=== PATIENT | female | born 1960 | race Caucasian/White ===

== ENCOUNTER 2017-01-06 11:57 | Emergency (ER) | payer MEDICARE, BC ==
[2017-01-06] MEDS ORDERED: METHYLPREDNISOLONE INJ 125 MG/2 ML SDV IV ONE (12:14)
--- NOTE | 2017-01-06 12:19 | ER Document Report ---
ED General - General Chief Complaint: Shortness Of Breath Stated Complaint: DIFFICULTY BREATHING Time seen by provider: 12:15 Mode of Arrival: Medic Information source: Patient, Relative Notes: 56-year-old female with history of multiple sclerosis who reports for the past 2 days having sensation of difficulty swallowing and feeling as if her throat is closing up. She denies prior history of symptoms like this. She reports recently completed a course of prednisone for her MS. She reports she is followed by Dr. Hairston in [place] for her multiple sclerosis and was recently started on Rituxan but she doesn't believe that's helping. She denies fever, chills, nausea, vomiting, earache, chest pain, abdominal pain, or back pain. Physical Exam: General: Alert, appears well. HEENT: Normocephalic. Atraumatic. PERRLA. Extraocular movements intact. Oropharynx clear. Patient has a soft voice but there is no stridor or hoarseness or drooling she is swallowing secretions Neck: Supple. Non-tender. No adenopathy no JVD Respiratory: No respiratory distress. Clear and equal breath sounds bilaterally. Cardiovascular: Regular rate and rhythm. Abdominal: Normal Inspection. Soft, non-tender. No guarding rebound rigidity No distension. Normal Bowel Sounds. Back: Non-tender. No deformity or step off. Extremities: Moves all four extremities. Punctures warm to plus pulses of cyanosis no edema no Homans sign bilaterally Neurological: Speech clear mentation normal patient care representative strength 4-5 and equal both upper extremities motor function 4-5 and equal in both lower extremities Psychological: Normal affect. Normal Mood. Skin: Warm. Dry. Normal color. TRAVEL OUTSIDE OF THE [place] IN LAST 30 DAYS: No - Related Data Allergies/Adverse Reactions: acetaminophen [From Vicodin] Allergy (Verified 03/15/12 19:12) Hallucinations glatiramer acetate [From Copaxone] Allergy (Verified 10/19/12 21:45) hydrocodone bitartrate [From Vicodin] Allergy (Verified 03/15/12 19:12) Hallucinations interferon beta-1b [From Betaseron] Allergy (Verified 10/19/12 21:45) Past Medical History - Social History Smoking Status: Current Every Day Smoker Family History: CAD, Hyperlipidemia, Hypertension, Other - Throat cancer - Past Medical History Cardiac Medical History: Reports: Hx Hypercholesterolemia Pulmonary Medical History: Denies: Hx Tuberculosis Renal/ Medical History: Reports: Hx Ovarian Cysts Musculoskeltal Medical History: Reports Hx Multiple Sclerosis Psychiatric Medical History: Reports: Hx Depression - anxiety Past Surgical History: Reports: Hx Cholecystectomy, Hx Tonsillectomy. Denies: Hx Pacemaker - Immunizations Hx Diphtheria, Pertussis, Tetanus Vaccination: No Review of Systems - Review of Systems Constitutional: denies: Chills, Fever EENT: denies: Ear pain Cardiovascular: denies: Chest pain Respiratory: denies: Cough Gastrointestinal: denies: Abdominal pain, Diarrhea Genitourinary: denies: Burning Female Genitourinary: denies: Musculoskeletal: denies: Back pain Hematologic/Lymphatic: denies: Swollen glands Neurological/Psychological: denies: Speech impairment Physical Exam - Vital signs Vitals: Temp Pulse Resp BP Pulse Ox 97.8 F 65 14 120/65 96 01/06/17 12:17 01/06/17 12:17 01/06/17 12:17 01/06/17 12:17 01/06/17 12:17 Course - Re-evaluation Re-evalutation: 01/06/17 16:07 01/06/17 16:07 Patient reports feeling somewhat better with Solu-Medrol 125 mg IV here. She has been drinking liquids without difficulty here. She has no stridor horses drooling or evidence for airway compromise. The case with Dr. Jamey Hairston her neurologist in [facility]. He and I agreed that her symptoms are likely an exacerbation of her multiple sclerosis. He requests that she receive a total of 1 g of Solu-Medrol IV and then be placed on a prednisone taper of 100 mg a day for 2 days tapering down to 10 mg for 2 days over 10 day course. Patient reports she has appointment with him next week she was encouraged to keep that appointment for follow-up - Vital Signs Vital signs: Temp Pulse Resp BP Pulse Ox 97.8 F 65 14 120/65 96 01/06/17 12:17 01/06/17 12:17 01/06/17 12:17 01/06/17 12:17 01/06/17 12:17 - Laboratory Result Diagrams: 01/06/17 12:45 01/06/17 12:45 Laboratory results interpreted by me: 01/06/17 01/06/17 12:45 12:45 RDW 14.4 H ALT 64 H - Diagnostic Test Radiology reviewed: Image reviewed, Reports reviewed - EKG Interpretation by Me Additional EKG results interpreted by me: 01/06/17 16:06 EKG reviewed by myself shows sinus rhythm at 68 with no acute changes Discharge - Discharge Clinical Impression: Multiple sclerosis Dyspnea Qualifiers: Dyspnea type: unspecified Qualified Code(s): R06.00 - Dyspnea, unspecified Condition: Stable Disposition: HOME, SELF-CARE Additional Instructions: Take prednisone tapering dose as prescribed. Keep your appointment with Dr. Hairston next week. See your doctor or return to emergency department for further problems Prescriptions: Prednisone [Deltasone 20 mg Tablet] See Protocol PO DAILY 10 Days Referrals: MEHREEN PEREZ MD [Primary Care Provider] - Follow up as needed
[2017-01-06 13:00] LABS: ABSOLUTE BASOPHILS # (AUTO) 0.1 10^3/uL (0.0-0.2); ABSOLUTE EOSINOPHILS # (AUTO) 0.1 10^3/uL (0.0-0.6); ABSOLUTE LYMPHOCYTES (AUTO) 1.6 10^3/uL (0.5-4.7); ABSOLUTE MONOCYTES (AUTO) 0.7 10^3/uL (0.1-1.4); ABSOLUTE NEUT (AUTO) 7.9 10^3/uL (1.7-8.2); BASOPHILS % (AUTO) 0.6 % (0-2); HEMATOCRIT 41.3 % (36.0-47.0); HEMOGLOBIN 13.8 g/dL (12.0-15.5); HGB HCT DIFFERENCE 0.1; LYMPHOCYTES % (AUTO) 15.6 % (13-45); MEAN CORPUSCULAR HEMOGLOBIN 32.4 pg (27.0-33.4); MEAN CORPUSCULAR HGB CONC 33.4 g/dL (32.0-36.0); MEAN CORPUSCULAR VOLUME 97 fl (80-97); MONOCYTES % (AUTO) 6.3 % (3-13); RED BLOOD COUNT 4.26 10^6/uL (3.72-5.28); RED CELL DISTRIBUTION WIDTH 14.4 % (11.5-14.0); SEGMENTED NEUTROPHILS % (AUTO) 76.5 % (42-78); WHITE BLOOD COUNT 10.3 10^3/uL (4.0-10.5)
[2017-01-06 13:28] LABS: ALANINE AMINOTRANSFERASE 64 U/L (9-52); ALBUMIN 4.2 g/dL (3.5-5.0); ALKALINE PHOSPHATASE 87 U/L (38-126); ANION GAP 8 (5-19); ASPARTATE AMINO TRANSFERASE 21 U/L (14-36); BILIRUBIN,TOTAL 0.5 mg/dL (0.2-1.3); BLOOD UREA NITROGEN 10 mg/dL (7-20); CALCIUM 9.5 mg/dL (8.4-10.2); CARBON DIOXIDE 26 mmol/L (22-30); CHLORIDE 106 mmol/L (98-107); GLUCOSE 98 mg/dL (75-110); POTASSIUM 3.9 mmol/L (3.6-5.0); SODIUM 140.1 mmol/L (137-145); TOTAL PROTEIN 6.5 g/dL (6.3-8.2)
[2017-01-06] MEDS ORDERED: METHYLPREDNISOLONE INJ 40 MG/1 ML SDV IV ONE (15:17)
[2017-01-06] MEDS ORDERED: METHYLPREDNISOLONE INJ 1000 MG VIAL IV ONE (16:30)
[2017-01-06 17:33] VITALS: BP 125/96
--- NOTE | 2017-01-06 23:51 | EKG REPORT ---
SEVERITY:- NORMAL ECG - SINUS RHYTHM : Confirmed by: Dennis Nelson 06-Jan-2017 23:50:26
== END 2017-01-06 17:33 | disposition home or self-care (01) ==
LOC: ER 11:57
DX: G35 Multiple sclerosis (principal); R06.00 Dyspnea, unspecified; F17.200 Nicotine dependence, unspecified, uncomplicated; Z90.49 Acquired absence of other specified parts of digestive tract; Z88.6 Allergy status to analgesic agent
CPT/HCPCS: 93005; 96376; 99285; 96374; 36415; 85025; 80053; 71010; 70491; 93010; J2930 ×2

== ENCOUNTER 2017-10-14 11:01 | Emergency (ER) | payer BC, MEDICARE ==
--- NOTE | 2017-10-14 11:04 | ER Document Report ---
ED General - General Stated Complaint: POSSIBLE STROKE Time Seen by Provider: 10/14/17 11:03 Notes: 57-year-old female patient to the emergency department via EMS for strokelike symptoms. Reportedly started at 1030 this morning. Had a collapse at home. Questionable seizure-like activity. History of seizures. Complaining of a headache prior to this strokelike symptom. EMS was uncertain whether this is a stroke so-called stroke alert just to be safe. Patient is responsive. Opening eyes. Squeezing fingers. Wants to keep her eyes closed due to the headache. No vomiting. No other symptoms at this time. She taken directly to CT scan. TRAVEL OUTSIDE OF THE [place] IN LAST 30 DAYS: No - HPI Onset: Just prior to arrival Onset/Duration: Sudden Quality of pain: Throbbing Severity: Moderate Pain Level: 0 Associated symptoms: Headache - Related Data Allergies/Adverse Reactions: acetaminophen [From Vicodin] Allergy (Verified 03/15/12 19:12) Hallucinations glatiramer acetate [From Copaxone] Allergy (Verified 10/19/12 21:45) hydrocodone bitartrate [From Vicodin] Allergy (Verified 03/15/12 19:12) Hallucinations interferon beta-1b [From Betaseron] Allergy (Verified 10/19/12 21:45) Past Medical History - General Information source: Patient, [facility] Records - Social History Smoking Status: Former Smoker Cigarette use (# per day): No Frequency of alcohol use: None Drug Abuse: None Lives with: Family, Spouse/Significant other Family History: CAD, Hyperlipidemia, Hypertension, Other - Throat cancer - Past Medical History Cardiac Medical History: Reports: Hx Hypercholesterolemia Pulmonary Medical History: Denies: Hx Tuberculosis Renal/ Medical History: Reports: Hx Ovarian Cysts Musculoskeltal Medical History: Reports Hx Multiple Sclerosis Psychiatric Medical History: Reports: Hx Depression - anxiety Past Surgical History: Reports: Hx Cholecystectomy, Hx Tonsillectomy. Denies: Hx Pacemaker - Immunizations Hx Diphtheria, Pertussis, Tetanus Vaccination: No Review of Systems - Review of Systems Constitutional: Weakness EENT: Blurred vision, Other - Right-sided facial weakness Cardiovascular: No symptoms reported Respiratory: No symptoms reported Gastrointestinal: No symptoms reported Genitourinary: No symptoms reported Female Genitourinary: No symptoms reported Musculoskeletal: Muscle pain, Other - Muscle weakness bilateral lower extremities Skin: No symptoms reported Hematologic/Lymphatic: No symptoms reported Neurological/Psychological: Gait changes, Seizure, Headaches Physical Exam - Vital signs Vitals: Resp 17 10/14/17 11:18 Interpretation: Normal - General General appearance: Alert, Other - She appears uncomfortable. Wants to keep her eyes closed due to the headache. - HEENT Head: Normocephalic, Atraumatic Eyes: Normal Pupils: PERRL Fundascopic: Other - Very difficult to get patient to cooperate with exam due to the photophobia Mucous membranes: Normal Neck: Normal. No: Brudzinski, Lymphadenopathy, Meningismus - Respiratory Respiratory status: No respiratory distress Chest status: Nontender Breath sounds: Normal Chest palpation: Normal - Cardiovascular Rhythm: Regular Heart sounds: Normal auscultation Murmur: No - Abdominal Inspection: Normal Distension: No distension Bowel sounds: Normal Tenderness: Nontender Organomegaly: No organomegaly - Back Back: Normal, Nontender - Extremities General upper extremity: Normal inspection, Nontender, Normal color, Normal ROM , Normal temperature General lower extremity: Normal inspection, Nontender, Normal color, Normal ROM , Normal temperature, Normal weight bearing. No: Syd's sign - Neurological Neuro grossly intact: Yes Cognition: Normal Orientation: AAOx4 Hayley Coma Scale Eye Opening: Spontaneous Hayley Coma Scale Verbal: Oriented Hayley Coma Scale Motor: Obeys Commands Hayley Coma Scale Total: 15 Speech: Normal Cranial nerves: Normal Motor strength normal: LUE, RUE, LLE, RLE Sensory: Normal Notes: No obvious pronator drift. Patient may have some light asymmetry of the face. - Psychological Associated symptoms: Normal affect, Normal mood - Skin Skin Temperature: Warm Skin Moisture: Dry Skin Color: Normal Course - Re-evaluation Re-evalutation: 10/14/17 12:20 She with history of MS. States that she has had this happen once before due to a flareup of the MS. Patient is on right t been blunting gone this morning [place]. Followed by a neurologist, Dr. Hairston 10/14/17 13:29 Patient is feeling much better at this time. Awaiting on MRI results and then will consult with neurologist. 10/14/17 14:01 Laboratory 10/14/17 10/14/17 10/14/17 11:23 11:23 11:23 WBC 7.7 RBC 4.17 Hgb 14.0 Hct 39.5 MCV 95 MCH 33.5 H MCHC 35.3 RDW 13.7 Plt Count 250 Seg Neutrophils % 68.1 Lymphocytes % 19.9 Monocytes % 8.1 Eosinophils % 2.8 Basophils % 1.1 Absolute Neutrophils 5.2 Absolute Lymphocytes 1.5 Absolute Monocytes 0.6 Absolute Eosinophils 0.2 Absolute Basophils 0.1 PT INR Sodium 143.8 Potassium 4.2 Chloride 107 Carbon Dioxide 25 Anion Gap 12 BUN 7 Creatinine 0.75 Est GFR ( Amer) > 60 Est GFR (Non-Af Amer) > 60 Glucose 91 Calcium 9.7 Total Bilirubin 0.4 Direct Bilirubin 0.4 Indirect Bilirubin Not Reportable Neonat Total Bilirubin Not Reportable AST 24 ALT 42 Alkaline Phosphatase 93 Creatine Kinase 251 H CK-MB (CK-2) 0.83 Troponin I < 0.012 Total Protein 6.8 Albumin 4.4 Urine Color Urine Appearance Urine pH Ur Specific [place] Urine Protein Urine Glucose (UA) Urine Ketones Urine Blood Urine Nitrite Urine Bilirubin Urine Urobilinogen Ur Leukocyte Esterase Urine WBC (Auto) Urine RBC (Auto) Urine Ascorbic Acid Urine Opiates Screen Urine Methadone Screen Ur Barbiturates Screen Ur Phencyclidine Scrn Ur Amphetamines Screen U Benzodiazepines Scrn Urine Cocaine Screen U Marijuana (THC) Screen 10/14/17 10/14/17 10/14/17 11:23 12:24 12:24 WBC RBC Hgb Hct MCV MCH MCHC RDW Plt Count Seg Neutrophils % Lymphocytes % Monocytes % Eosinophils % Basophils % Absolute Neutrophils Absolute Lymphocytes Absolute Monocytes Absolute Eosinophils Absolute Basophils PT 12.4 INR 0.86 Sodium Potassium Chloride Carbon Dioxide Anion Gap BUN Creatinine Est GFR ( Amer) Est GFR (Non-Af Amer) Glucose Calcium Total Bilirubin Direct Bilirubin Indirect Bilirubin Neonat Total Bilirubin AST ALT Alkaline Phosphatase Creatine Kinase CK-MB (CK-2) Troponin I Total Protein Albumin Urine Color STRAW Urine Appearance CLEAR Urine pH 7.0 Ur Specific [place] 1.003 Urine Protein NEGATIVE Urine Glucose (UA) NEGATIVE Urine Ketones NEGATIVE Urine Blood SMALL H Urine Nitrite NEGATIVE Urine Bilirubin NEGATIVE Urine Urobilinogen NEGATIVE Ur Leukocyte Esterase NEGATIVE Urine WBC (Auto) 0 Urine RBC (Auto) 0 Urine Ascorbic Acid NEGATIVE Urine Opiates Screen NEGATIVE Urine Methadone Screen NEGATIVE Ur Barbiturates Screen NEGATIVE Ur Phencyclidine Scrn NEGATIVE Ur Amphetamines Screen NEGATIVE U Benzodiazepines Scrn NEGATIVE Urine Cocaine Screen NEGATIVE U Marijuana (THC) Screen NEGATIVE Chest X-Ray 10/14/17 11:07 IMPRESSION: NO ACUTE RADIOGRAPHIC FINDING IN THE CHEST. Head CT 10/14/17 11:08 IMPRESSION: NORMAL BRAIN CT WITHOUT CONTRAST. EVIDENCE OF ACUTE STROKE: NO. Head MRI 10/14/17 11:45 IMPRESSION: Stable white matter lesions from multiple sclerosis or demyelinating disease. No new lesions. In particular, no brainstem lesions are identified. EVIDENCE OF ACUTE STROKE: NO. Patient's headache much improved. Sleeping soundly at this time. Consult the patient's neurologist, Dr. Jamey Hairston in [facility]. He states that he knows patient quite well and is very convinced that this is more likely an MS flare. Recommend starting on Solu-Medrol 1 g 1 and then doing a 2 week taper with prednisone. Will give her some IV fluids as well as the initial Solu-Medrol dose at this time. Wanted to admit patient to the hospital for observation but hospitalist refused based on the fact that we do not have a neurologist. 10/14/17 16:07 Patient is feeling much better at this time. Wants to go home. Patient is alert and oriented in no acute distress. Has received her 1 g dose of steroids. IV fluids. Gave her strict warning signs and the presence of her family members of things to watch out for. Comfortable at this time discharging - Vital Signs Vital signs: Temp Pulse Resp BP Pulse Ox 98.0 F 16 141/83 H 95 10/14/17 14:03 10/14/17 15:01 10/14/17 15:01 10/14/17 15:01 - Laboratory Result Diagrams: 10/14/17 11:23 10/14/17 11:23 Laboratory results interpreted by me: 10/14/17 10/14/17 10/14/17 11:23 11:23 12:24 MCH 33.5 H Creatine Kinase 251 H Urine Blood SMALL H - EKG Interpretation by Me EKG shows normal: Sinus rhythm, [place], Intervals, QRS Complexes, ST-T Waves Discharge - Discharge Clinical Impression: Multiple sclerosis Condition: Good Additional Instructions: Multiple Sclerosis Flare Your exam today is concerning for a flareup of multiple sclerosis. Your neurologist Dr. Hairston would like us to start you on steroids. We will begin the IV dosing of the steroids at this time. You will need a long dose of prednisone taper. This will likely cause some problems with sleep and also can cause issues with the GI tract leading to ulcers. A you will need to be on some prophylaxis medication to prevent ulcers so we will start you on some Protonix. You will also likely need some help with sleep because the steroids can interfere with your ability to relax and sleep. Please take the medications as prescribed. Your prednisone tapering will last approximately 2 weeks. It will be very important that you follow-up with your neurologist. Please call your neurologist on Thursday for follow-up appointment. If symptoms are getting worse, you develop fever, chills, sweats, worsening headache, worsening neurological symptoms please return for repeat evaluation. Headache The physician does not feel that the headache you are experiencing has a serious underlying cause. Most headaches are due to emotional stress, with resultant muscle tension (tension headache). Occasionally, headaches are secondary to changes in the blood vessels of the scalp (vascular headache and migraine headache). Sometimes, a headache is the first symptom of another developing illness, such as a viral infection. You have no evidence of stroke, bleeding, meningitis, or other serious cause of your headache. The treatment of headaches varies with the severity and cause of the pain. Not all headaches need pain shots. In fact, there is evidence that using narcotics for headaches may make them worse in the long run. The physician will determine the therapy that's in your best interest. If you develop a fever, if the headache is different from any you've previously experienced, or if the headache progressively worsens, then call your physician at once or go to the emergency room. Prescriptions: Temazepam 15 mg PO QHS 30 Days #30 capsule Pantoprazole Sodium [Protonix] 40 mg PO DAILY 30 Days #30 tablet. Prednisone 20 mg PO DAILY 13 Days #50 tablet Referrals: MEHEREN PEREZ MD [Primary Care Provider] - Follow up as needed
[2017-10-14] MEDS ORDERED: PROCHLORPERAZINE EDISYLATE INJ 10 MG/2 ML VIAL IV ONE (11:33)
[2017-10-14] MEDS ORDERED: KETOROLAC TROMETHAMINE INJ/PF 30 MG/1 ML SDV IV ONE (11:33)
[2017-10-14] MEDS ORDERED: DIPHENHYDRAMINE HCL 50 MG/ML VIAL IV ONE (11:34)
[2017-10-14 11:36] LABS: ABSOLUTE BASOPHILS # (AUTO) 0.1 10^3/uL (0.0-0.2); ABSOLUTE EOSINOPHILS # (AUTO) 0.2 10^3/uL (0.0-0.6); ABSOLUTE LYMPHOCYTES (AUTO) 1.5 10^3/uL (0.5-4.7); ABSOLUTE MONOCYTES (AUTO) 0.6 10^3/uL (0.1-1.4); ABSOLUTE NEUT (AUTO) 5.2 10^3/uL (1.7-8.2); BASOPHILS % (AUTO) 1.1 % (0-2); EOSINOPHILS % (AUTO) 2.8 % (0-6); HEMATOCRIT 39.5 % (36.0-47.0); HGB HCT DIFFERENCE 2.5; LYMPHOCYTES % (AUTO) 19.9 % (13-45); MEAN CORPUSCULAR HEMOGLOBIN 33.5 pg (27.0-33.4); MEAN CORPUSCULAR HGB CONC 35.3 g/dL (32.0-36.0); MEAN CORPUSCULAR VOLUME 95 fl (80-97); MONOCYTES % (AUTO) 8.1 % (3-13); RED BLOOD COUNT 4.17 10^6/uL (3.72-5.28); RED CELL DISTRIBUTION WIDTH 13.7 % (11.5-14.0); SEGMENTED NEUTROPHILS % (AUTO) 68.1 % (42-78); WHITE BLOOD COUNT 7.7 10^3/uL (4.0-10.5)
--- NOTE | 2017-10-14 11:36 | RADIOLOGY REPORT (SQ) ---
EXAM DESCRIPTION: CT HEAD WITHOUT COMPLETED DATE/TIME: 10/14/2017 11:13 am REASON FOR STUDY: stroke alert COMPARISON: MRI 02/28/2016 TECHNIQUE: Axial images acquired through the brain without intravenous contrast. Images reviewed wi th bone, brain and subdural windows. Images stored on PACS. All CT scanners at this facility use dose modulation, iterative reconstruction, and/or weight based d osing when appropriate to reduce radiation dose to as low as reasonably achievable (ALARA). [facility]: Dose Right [facility]: CareDose [facility]: Dose Right [facility]: Teradose 4D [facility]: [employer] RADIATION DOSE: 64.6mGy. LIMITATIONS: None. FINDINGS: VENTRICLES: Normal size and contour. CEREBRUM: No masses. No hemorrhage. No midline shift. No evidence for acute infarction. Normal gra y/white matter differentiation. No areas of low density in the white matter. CEREBELLUM: No masses. No hemorrhage. No alteration of density. No evidence for acute infarction. EXTRAAXIAL SPACES: No fluid collections. No masses. ORBITS AND GLOBE: No intra- or extraconal masses. Normal contour of globe without masses. CALVARIUM: No fracture. PARANASAL SINUSES: No fluid or mucosal thickening. SOFT TISSUES: No mass or hematoma. OTHER: No other significant finding. IMPRESSION: NORMAL BRAIN CT WITHOUT CONTRAST. EVIDENCE OF ACUTE STROKE: NO. COMMENT: Findings were discussed with the ordering physician at 1130 hours on this date. Quality ID # [id number]: Final reports with documentation of one or more dose reduction techniques (e.g., Au tomated exposure control, adjustment of the mA and/or kV according to patient size, use of iterative reconstruction technique) TECHNICAL DOCUMENTATION: JOB ID: [id number]- All Rights Reserved
[2017-10-14 11:37] LABS: PROTHROMBIN TIME 12.4 SEC (11.4-15.4)
[2017-10-14 12:01] LABS: ALANINE AMINOTRANSFERASE 42 U/L (9-52); ALBUMIN 4.4 g/dL (3.5-5.0); ALKALINE PHOSPHATASE 93 U/L (38-126); ANION GAP 12 (5-19); ASPARTATE AMINO TRANSFERASE 24 U/L (14-36); BILIRUBIN,DIRECT 0.4 mg/dL (0.0-0.4); BILIRUBIN,TOTAL 0.4 mg/dL (0.2-1.3); BLOOD UREA NITROGEN 7 mg/dL (7-20); CALCIUM 9.7 mg/dL (8.4-10.2); CARBON DIOXIDE 25 mmol/L (22-30); CHLORIDE 107 mmol/L (98-107); CREATINE KINASE 251 U/L (30-135); CREATININE RESULT 0.75 mg/dL (0.52-1.25); GLUCOSE 91 mg/dL (75-110); POTASSIUM 4.2 mmol/L (3.6-5.0); SODIUM 143.8 mmol/L (137-145); TOTAL PROTEIN 6.8 g/dL (6.3-8.2)
[2017-10-14 12:14] LABS: CREATINE KINASE MB 0.83 ng/mL (<4.55)
[2017-10-14 12:16] LABS: TROPONIN I < 0.012 ng/mL
--- NOTE | 2017-10-14 12:16 | RADIOLOGY REPORT (SQ) ---
EXAM DESCRIPTION: CHEST SINGLE VIEW COMPLETED DATE/TIME: 10/14/2017 12:03 pm REASON FOR STUDY: stroke alert COMPARISON: CHEST FILM 03/26/2010, 10/19/2012, 03/17/2014, 01/06/2017 EXAM PARAMETERS: NUMBER OF VIEWS: One view. TECHNIQUE: Single frontal radiographic view of the chest acquired. RADIATION DOSE: NA LIMITATIONS: AP lordotic portable film with EKG leads over the chest. FINDINGS: LUNGS AND PLEURA: No opacities, masses or pneumothorax. No pleural effusion. MEDIASTINUM AND HILAR STRUCTURES: No masses. Contour normal. HEART AND VASCULAR STRUCTURES: Heart normal in size. Normal vasculature. BONES: No acute findings. HARDWARE: None in the chest. OTHER: No other significant finding. IMPRESSION: NO ACUTE RADIOGRAPHIC FINDING IN THE CHEST. TECHNICAL DOCUMENTATION: JOB ID: [id number] [employer]- All Rights Reserved
[2017-10-14 12:40] LABS: APPEARANCE,URINE CLEAR; BILIRUBIN,URINE NEGATIVE (NEGATIVE); GLUCOSE, URINE NEGATIVE (NEGATIVE); KETONES,URINE NEGATIVE (NEGATIVE); LEUKOCYTE ESTERASE,URINE NEGATIVE (NEGATIVE); NITRITE,URINE NEGATIVE (NEGATIVE); PROTEIN,URINE NEGATIVE (NEGATIVE); URINE SPECIFIC GRAVITY 1.003; UROBILINOGEN,URINE NEGATIVE mg/dL (<2.0)
[2017-10-14 12:58] LABS: URINE BARBITURATES SCREEN NEGATIVE; URINE METHADONE SCREEN NEGATIVE; URINE OPIATES LOW NEGATIVE; URINE PHENCYCLIDINE SCREEN NEGATIVE
--- NOTE | 2017-10-14 13:35 | RADIOLOGY REPORT (SQ) ---
EXAM DESCRIPTION: MRI HEAD WITHOUT COMPLETED DATE/TIME: 10/14/2017 1:11 pm REASON FOR STUDY: right facial paralysis, hx of ms, headache COMPARISON: 05/14/2012, 12/13/2013, 02/28/2016 brain MRI TECHNIQUE: Multiplanar imaging includes non-contrasted T1, T2, FLAIR, and diffusion with ADC map seq uences. Images stored on PACS. LIMITATIONS: None. FINDINGS: ANATOMY: No developmental anomalies. Normal vascular flow voids. Pituitary fossa normal. CSF SPACES: Normal in size and contour. No hemorrhage. CEREBRUM: Multiple foci of increased FLAIR/ T2 white matter signal throughout the hemispheres extendi ng into deep pericallosal white matter, stable. There is also involvement of the bilateral external capsule and posterior right internal capsule. Findings are compatible with clinical diagnosis of the mass. No new lesions are identified. No brainstem lesions are identified on today's study. No MR evidence of acute ischemic change, intracranial hemorrhage mass effect or midline shift. POSTERIOR FOSSA: No signal alteration. No hemorrhage. No edema, masses or mass effect. Internal amna tory canals, cerebello-pontine angles, mastoids normal. DIFFUSION IMAGING: Negative for acute or sub-acute infarction. ORBITS: No masses. Globes normal. PARANASAL SINUSES: No fluid levels. Mucosa normal. OTHER: No other significant finding. IMPRESSION: Stable white matter lesions from multiple sclerosis or demyelinating disease. No new lesions. In particular, no brainstem lesions are identified. EVIDENCE OF ACUTE STROKE: NO. TECHNICAL DOCUMENTATION: JOB ID: [id number] [employer]- All Rights Reserved
[2017-10-14] MEDS ORDERED: METHYLPREDNISOLONE INJ 1000 MG VIAL IV ONE (13:52)
[2017-10-14] MEDS ORDERED: NORMAL SALINE 1000 ML 1,000 ML IV ONE (14:01)
[2017-10-14 16:25] VITALS: BP 147/98
--- NOTE | 2017-10-14 19:33 | EKG REPORT ---
SEVERITY:- NORMAL ECG - SINUS RHYTHM : Confirmed by: Roz Palumbo MD 14-Oct-2017 19:32:27
== END 2017-10-14 16:30 | disposition home or self-care (01) ==
LOC: ER 11:01
DX: G35 Multiple sclerosis (principal); R51 Headache; Z88.6 Allergy status to analgesic agent; Z87.891 Personal history of nicotine dependence; Z90.49 Acquired absence of other specified parts of digestive tract
CPT/HCPCS: 93005; 99285; 96361; 96374; 96375; 36415; 82553; 82550; 85025; 85610; 80053; 81001; 84484; 80307; 70551; 71010; 70450; 93010; J1200; J2930; J1885; J0780; J7030

== ENCOUNTER 2018-06-11 10:40 | Emergency (ER) | payer MEDICARE, BC ==
[2018-06-11] MEDS ORDERED: HYDROMORPHONE HCL INJ/PF 2 MG/ML AMPULE IV ONE (11:47)
[2018-06-11] MEDS ORDERED: DIPH/PERTUSS(ACELL)/TETANUS VAC/PF 0.5 ML SYR (>=10YO) IM ONE (11:54)
--- NOTE | 2018-06-11 11:54 | ER Document Report ---
ED General - General Chief Complaint: Fall Stated Complaint: FALL BODY PAIN Time Seen by Provider: 06/11/18 11:03 Mode of Arrival: Medic Notes: 57-year-old female with MS presents the emergency department stating that she was trimming branches outside when she looked up and became dizzy while standing on a 5-6 foot tall ladder, states she fell off the ladder and landed on her back on the ground. States that she felt something in her head break, complains of pain to the left side of jaw her jaw, the middle of her back and her bilateral hips. Patient states that she always gets dizzy when she looks up for too long, states the dizziness is nothing new and she attributes it to her intermittent progressive MS. Denies taking any blood thinners. TRAVEL OUTSIDE OF THE [place] IN LAST 30 DAYS: No - Related Data Allergies/Adverse Reactions: acetaminophen [From Vicodin] Allergy (Verified 03/15/12 19:12) Hallucinations glatiramer acetate [From Copaxone] Allergy (Verified 10/19/12 21:45) hydrocodone bitartrate [From Vicodin] Allergy (Verified 03/15/12 19:12) Hallucinations interferon beta-1b [From Betaseron] Allergy (Verified 10/19/12 21:45) Past Medical History - General Information source: Patient - Social History Smoking Status: Current Every Day Smoker Chew tobacco use (# tins/day): No Frequency of alcohol use: None Drug Abuse: None Lives with: Spouse/Significant other Family History: CAD, Hyperlipidemia, Hypertension, Other - Throat cancer - Past Medical History Cardiac Medical History: Reports: Hx Atrial Fibrillation, Hx Hypercholesterolemia Pulmonary Medical History: Denies: Hx Tuberculosis Renal/ Medical History: Reports: Hx Ovarian Cysts. Denies: Hx Peritoneal Dialysis Musculoskeletal Medical History: Reports Hx Multiple Sclerosis Psychiatric Medical History: Reports: Hx Depression - anxiety Past Surgical History: Reports: Hx Cholecystectomy, Hx Tonsillectomy. Denies: Hx Pacemaker - Immunizations Hx Diphtheria, Pertussis, Tetanus Vaccination: No Review of Systems - Review of Systems Constitutional: No symptoms reported EENT: No symptoms reported Cardiovascular: See HPI, Syncope - She thinks she passed out when she hit the ground., Dizziness Respiratory: No symptoms reported Musculoskeletal: See HPI -: Yes All other systems reviewed and negative Physical Exam - Vital signs Vitals: Pulse Ox 96 06/11/18 10:44 Interpretation: Normal - Notes Notes: GENERAL: Alert, interacts well. No acute distress. HEAD: Normocephalic, atraumatic, however she complains of tenderness with palpation of the posterior occiput, no hematoma no break in the skin. EYES: Pupils equal, round and reactive to light, extraocular movements intact. ENT: Oral mucosa moist, tongue midline. Nares patent, no nasal septal hematoma, TMs intact. NECK: Full range of motion, supple, trachea midline. LUNGS: Clear to auscultation bilaterally, no wheezes, rales or rhonchi, no respiratory distress. HEART: Regular rate and rhythm, no murmurs, gallops, rubs. ABDOMEN: Soft, nontender, nondistended, bowel sounds present in all 4 quadrants. EXTREMITIES: Moves all 4 extremities spontaneously, no edema, radial and dorsalis pedis pulses 2/4 bilaterally. No cyanosis. Complains of tenderness across the left clavicle no deformities noted, complaints of pain with leg roll of the left hip and tenderness to palpation of the left hip without any signs of trauma or deformity, right hip has pain with elevation but no pain with leg roll again no trauma or deformity. NEUROLOGICAL: Alert and oriented x3, normal speech, cranial nerves II through XII grossly intact, biceps and patellar DTRs 2+ bilaterally. PSYCH: Normal mood, normal affect. SKIN: Warm, Dry, normal turgor, small abrasion noted to the ulnar aspect of the third digit over the PIP joint. Course - Re-evaluation Re-evalutation: 06/11/18 14:08 CBC unremarkable, coags normal, CMP grossly unremarkable, slightly elevated sodium 145.4 not likely significant, no renal failure, CT scan of the head, facial bones, cervical spine, chest, abdomen and pelvis are all negative, there is no bleeding, fracture or dislocation. Hips were normal on the x-rays. Shoulder x-ray was negative for acute fracture or dislocation. Patient already has hydrocodone at home, I will add a muscle relaxer in the form of Robaxin on top of this and she will be discharged to home. - Vital Signs Vital signs: Temp Pulse Resp BP Pulse Ox 97.6 F 19 135/88 H 96 06/11/18 10:58 06/11/18 14:00 06/11/18 11:01 06/11/18 14:00 - Laboratory Result Diagrams: 06/11/18 11:45 06/11/18 11:45 Laboratory results interpreted by me: 06/11/18 11:45 Sodium 145.4 H Chloride 109 H Discharge - Discharge Clinical Impression: Fall at home Qualifiers: Encounter type: initial encounter Qualified Code(s): W19.XXXA - Unspecified fall, initial encounter; Y92.009 - Unspecified place in unspecified non- institutional (private) residence as the place of occurrence of the external cause; Y92.009 - Unspecified place in unspecified non-institutional (private) residence as the place of occurrence of the external cause Cervical strain, acute Qualifiers: Encounter type: initial encounter Qualified Code(s): S16.1XXA - Strain of muscle, fascia and tendon at neck level, initial encounter Condition: Stable Disposition: HOME, SELF-CARE Additional Instructions: Neck Injury (Cervical Strain) You have a neck strain. This is an injury to the muscles and ligaments in the neck. There is no evidence of a fracture of the neck bones. Also, no injury to the spinal cord or nerve roots was detected. Usually, stiffness and pain INCREASE for the first 24-48 hours after the injury. The pain will gradually resolve and the neck will become more mobile. Most patients are back at work or school within a few days. Typically, complete healing takes about two or three weeks. The usual initial treatment is rest and cold packs. A neck collar may be placed to keep the muscles of the neck at rest. Antiinflammatory and muscle relaxing medication are often used to reduce the spasm and irritation. You should call the doctor, or go to the hospital, if you develop numbness or weakness in any extremity, problems with your bladder or bowel, or pain radiating down the arms. Muscle Relaxers Muscle relaxing medications are usually prescribed for acute muscle spasm or injury to the neck and back. They are often combined with antiinflammatory pain medication for increased relief. You may stop the muscle relaxer when the pain and stiffness have improved. Start the medication again if spasms recur. Muscle relaxers may cause drowsiness, especially with the first dose. Do not operate machinery or drive while under the effects of the medication. Most muscle relaxers last up to 24 hours. Do not combine the medication with alcohol. Today your CAT scans did not show any signs of bleeding in your brain, fractures to any of your bones or dislocations. Prescriptions: Methocarbamol [Robaxin 750 mg Tablet] 750 mg PO ASDIR PRN #40 tablet PRN Reason: Referrals: MEHREEN PEREZ MD [Primary Care Provider] - Follow up as needed RYAN RODRIGUEZ MD [EMERITUS] - Follow up as needed
[2018-06-11 12:05] LABS: ABSOLUTE BASOPHILS # (AUTO) 0.1 10^3/uL (0.0-0.2); ABSOLUTE EOSINOPHILS # (AUTO) 0.2 10^3/uL (0.0-0.6); ABSOLUTE LYMPHOCYTES (AUTO) 1.3 10^3/uL (0.5-4.7); ABSOLUTE MONOCYTES (AUTO) 0.5 10^3/uL (0.1-1.4); ABSOLUTE NEUT (AUTO) 5.3 10^3/uL (1.7-8.2); BASOPHILS % (AUTO) 1.1 % (0-2); EOSINOPHILS % (AUTO) 2.4 % (0-6); HEMATOCRIT 41.4 % (36.0-47.0); HEMOGLOBIN 14.1 g/dL (12.0-15.5); LYMPHOCYTES % (AUTO) 18.1 % (13-45); MEAN CORPUSCULAR HEMOGLOBIN 32.7 pg (27.0-33.4); MEAN CORPUSCULAR HGB CONC 34.2 g/dL (32.0-36.0); MEAN CORPUSCULAR VOLUME 96 fl (80-97); MONOCYTES % (AUTO) 6.5 % (3-13); PLATELET COUNT 272 10^3/uL (150-450); RED BLOOD COUNT 4.32 10^6/uL (3.72-5.28); RED CELL DISTRIBUTION WIDTH 13.7 % (11.5-14.0); SEGMENTED NEUTROPHILS % (AUTO) 71.9 % (42-78); TOTAL CELLS COUNTED % (AUTO) 100 %; WHITE BLOOD COUNT 7.4 10^3/uL (4.0-10.5)
[2018-06-11 12:12] LABS: INTERNATIONAL RATION (INR) 0.86; PROTHROMBIN TIME 12.2 SEC (11.4-15.4)
[2018-06-11 12:13] LABS: PARTIAL THROMBOPLASTIN TIME 29.2 SEC (23.5-35.8)
[2018-06-11 12:41] LABS: ALANINE AMINOTRANSFERASE 43 U/L (9-52); ALBUMIN 4.6 g/dL (3.5-5.0); ALKALINE PHOSPHATASE 98 U/L (38-126); ANION GAP 12 (5-19); ASPARTATE AMINO TRANSFERASE 33 U/L (14-36); BILIRUBIN,DIRECT 0.4 mg/dL (0.0-0.4); BILIRUBIN,TOTAL 0.4 mg/dL (0.2-1.3); BLOOD UREA NITROGEN 8 mg/dL (7-20); CALCIUM 9.6 mg/dL (8.4-10.2); CARBON DIOXIDE 24 mmol/L (22-30); CHLORIDE 109 mmol/L (98-107); GLUCOSE 90 mg/dL (75-110); POTASSIUM 4.3 mmol/L (3.6-5.0); SODIUM 145.4 mmol/L (137-145); TOTAL PROTEIN 7.2 g/dL (6.3-8.2)
--- NOTE | 2018-06-11 12:50 | RADIOLOGY REPORT (SQ) ---
EXAM DESCRIPTION: SHOULDER LEFT 2 OR MORE VIEWS COMPLETED DATE/TIME: 06/11/2018 12:08 pm REASON FOR STUDY: fell off 5 foot ladder, fet things crack COMPARISON: None. NUMBER OF VIEWS: Three views. TECHNIQUE: Internal rotation, external rotation, and Y view images acquired of the left shoulder. LIMITATIONS: None. FINDINGS: MINERALIZATION: Osteopenic BONES: No acute fracture or dislocation. No worrisome bone lesions. JOINTS: No glenohumeral dislocation. No widening at the AC joint VISUALIZED LUNGS AND RIBS: No pneumothorax. No rib fracture. SOFT TISSUES: No radiopaque foreign body. OTHER: No other significant finding. IMPRESSION: NEGATIVE STUDY OF THE LEFT SHOULDER. NO RADIOGRAPHIC EVIDENCE OF ACUTE INJURY. TECHNICAL DOCUMENTATION: JOB ID: [id number] [employer]- All Rights Reserved Reading location - IP/workstation name: [email or web address]
--- NOTE | 2018-06-11 13:00 | RADIOLOGY REPORT (SQ) ---
EXAM DESCRIPTION: CT HEAD WITHOUT COMPLETED DATE/TIME: 06/11/2018 12:42 pm REASON FOR STUDY: fell off 5 foot ladder, fet things crack COMPARISON: CT brain 02/21/2016, 10/14/2017 TECHNIQUE: Axial images acquired through the brain without intravenous contrast. Images reviewed wi th bone, brain and subdural windows. Additional sagittal and coronal reconstructions were generated. Images stored on PACS. All CT scanners at this facility use dose modulation, iterative reconstruction, and/or weight based d osing when appropriate to reduce radiation dose to as low as reasonably achievable (ALARA). [facility]: Dose Right [facility]: CareDose [facility]: Dose Right [facility]: Teradose 4D [facility]: [employer] RADIATION DOSE: CT Rad equipment meets quality standard of care and radiation dose reduction techniq ues were employed. CTDIvol: 53.2 mGy. DLP: 1017 mGy-cm. mGy. LIMITATIONS: None. FINDINGS: VENTRICLES: Normal size and contour. CEREBRUM: No CT evidence of acute large territory ischemic change, acute intracranial hemorrhage, mas s effect, or midline shift. Minimal bifrontal and biparietal small vessel ischemic change in the hem ispheric white matter, chronic in appearance. CEREBELLUM: No masses. No hemorrhage. No alteration of density. No evidence for acute infarction. EXTRAAXIAL SPACES: No fluid collections. No masses. ORBITS AND GLOBE: No intra- or extraconal masses. Normal contour of globe without masses. CALVARIUM: No fracture. PARANASAL SINUSES: No fluid or mucosal thickening. SOFT TISSUES: No mass or hematoma. OTHER: No other significant finding. IMPRESSION: No acute findings EVIDENCE OF ACUTE STROKE: NO. COMMENT: Quality ID # [id number]: Final reports with documentation of one or more dose reduction techniques (e.g., Automated exposure control, adjustment of the mA and/or kV according to patient size, use of iterative reconstruction technique) TECHNICAL DOCUMENTATION: JOB ID: [id number] [employer])- All Rights Reserved Reading location - IP/workstation name: [facility]-[email or web address]
--- NOTE | 2018-06-11 13:03 | RADIOLOGY REPORT (SQ) ---
EXAM DESCRIPTION: CT CERVICAL SPINE WITHOUT COMPLETED DATE/TIME: 06/11/2018 12:42 pm REASON FOR STUDY: fell off 5 foot ladder, fet things crack COMPARISON: CT soft tissue neck 01/06/2017 TECHNIQUE: Axial images acquired through the cervical spine without intravenous contrast. Images re viewed with lung, soft tissue and bone windows. Reconstructed coronal and sagittal MPR images review ed. Images stored on PACS. All CT scanners at this facility use dose modulation, iterative reconstruction, and/or weight based d osing when appropriate to reduce radiation dose to as low as reasonably achievable (ALARA). [facility]: Dose Right [facility]: CareDose [facility]: Dose Right [facility]: Teradose 4D [facility]: [facility] [employer] RADIATION DOSE: CT Rad equipment meets quality standard of care and radiation dose reduction techniq ues were employed. CTDIvol: 19.0 mGy. DLP: 435 mGy-cm. mGy. LIMITATIONS: None. FINDINGS: ALIGNMENT: Anatomic. MINERALIZATION: Normal. VERTEBRAL BODIES: No fractures or dislocation. DISCS: No significant disc disease. FACETS, LATERAL MASSES, POSTERIOR ELEMENTS: No fractures. No dislocation. No acute findings. HARDWARE: None in the spine. VISUALIZED RIBS: No fractures. LUNG APICES AND SOFT TISSUES: No significant or acute findings. OTHER: No other significant finding. IMPRESSION: NO ACUTE OR SIGNIFICANT FINDINGS IN THE CERVICAL SPINE. TECHNICAL DOCUMENTATION: JOB ID: [id number] Quality ID # [id number]: Final reports with documentation of one or more dose reduction techniques (e.g., Au tomated exposure control, adjustment of the mA and/or kV according to patient size, use of iterative reconstruction technique) 2010 [employer]- All Rights Reserved Reading location - IP/workstation name: [email or web address]
--- NOTE | 2018-06-11 13:05 | RADIOLOGY REPORT (SQ) ---
EXAM DESCRIPTION: CT FACIAL AREA WITHOUT COMPLETED DATE/TIME: 06/11/2018 12:42 pm REASON FOR STUDY: fell off 5 foot ladder, felt things crack fall, injury, pain COMPARISON: CT brain same date CT cervical spine same date TECHNIQUE: Noncontrasted images through the facial bones and orbits windowed for bone and soft tissu e. Additional coronal and sagittal reconstructed images reviewed. All images stored on PACS. All CT scanners at this facility use dose modulation, iterative reconstruction, and/or weight based d osing when appropriate to reduce radiation dose to as low as reasonably achievable (ALARA). [facility]: Dose Right [facility]: CareDose [facility]: Dose Right [facility]: Teradose 4D [facility]: [employer] RADIATION DOSE: CT Rad equipment meets quality standard of care and radiation dose reduction techniq ues were employed. CTDIvol: 30.4 mGy. DLP: 553 mGy-cm. mGy. LIMITATIONS: None. FINDINGS: FACIAL BONES: No fracture or bone lesion. ORBITS: Intact. No fracture. Symmetric intact globes and retroorbital soft tissues. PARANASAL SINUSES: Clear. No significant mucosal thickening, mass or fluid. No nasal polyps. Maxill erika sinus outlets are patent. SOFT TISSUES: No mass or edema. INFERIOR BRAIN: Limited view. No acute findings. OTHER: Leftward nasal septal deviation IMPRESSION: NO ACUTE FINDINGS. TECHNICAL DOCUMENTATION: JOB ID: [id number] Quality ID # [id number]: Final reports with documentation of one or more dose reduction techniques (e.g., Au tomated exposure control, adjustment of the mA and/or kV according to patient size, use of iterative reconstruction technique) 2010 [employer]- All Rights Reserved Reading location - IP/workstation name: [facility]-[email or web address]
--- NOTE | 2018-06-11 13:17 | RADIOLOGY REPORT (SQ) ---
EXAM DESCRIPTION: CT CHEST WITH; CT ABD/PELVIS WITH IV ONLY COMPLETED DATE/TIME: 06/11/2018 12:43 pm; 06/11/2018 12:42 pm REASON FOR STUDY: fell off 5 ft ladder; fell off 5 foot ladder, fet things crack COMPARISON: CT abdomen pelvis 09/27/2014, 10/11/2013 CONTRAST TYPE AND DOSE: contrast/concentration: Isovue 370.00 mg/ml; Total Contrast Delivered: 79.0 ml; Total Saline Delivered: 51.7 ml RENAL FUNCTION: Deferred by emergency room physician TECHNIQUE: CT scan of the chest performed using helical scanning technique with dynamic intravenous contrast injection. Images reviewed with lung, soft tissue and bone windows. Reconstructed coronal a nd sagittal MPR images reviewed. All images stored on PACS. CT scan of the abdomen and pelvis performed with intravenous and without oral contrastusing helical s amado technique with dynamic intravenous contrast injection. Images reviewed with lung, soft tissu e and bone windows. Reconstructed coronal and sagittal MPR images reviewed. Delayed images for eval uation of the urinary system also acquired and evaluated. All images stored on PACS. All CT scanners at this facility use dose modulation, iterative reconstruction, and/or weight based d osing when appropriate to reduce radiation dose to as low as reasonably achievable (ALARA). [facility]: Dose Right [facility]: CareDose [facility]: Dose Right [facility]: Teradose 4D [facility]: [employer] RADIATION DOSE: CT Rad equipment meets quality standard of care and radiation dose reduction techniq ues were employed. CTDIvol: 11.4 - 17.2 mGy. DLP: 1845 mGy-cm. . LIMITATIONS: None. FINDINGS: CHEST: LUNGS AND PLEURA: No opacities, nodules, masses. No pneumothorax. No effusions. HILAR AND MEDIASTINAL STRUCTURES: No identified masses or abnormal nodes. HEART AND VASCULAR STRUCTURES: No aneurysm or dissection. No central pulmonary emboli. No pericardi al effusion. HARDWARE: None. THYROID AND OTHER SOFT TISSUES: No masses. No adenopathy. BONES: No significant finding. OTHER: No other significant finding. ABDOMEN AND PELVIS: LIVER: Normal size. Benign 2 cm hemangioma of right lobe liver image 46, 2 cm hemangioma of right lo be liver image 52. . No dilated ducts. SPLEEN: Normal size. No focal lesions. PANCREAS: No masses. No significant calcifications. No adjacent inflammation or peripancreatic fluid collections. Pancreatic duct not dilated. GALLBLADDER: Surgically absent ADRENAL GLANDS: No significant masses or asymmetry. RIGHT KIDNEY AND URETER: No solid masses. 1 cm cyst right mid-pole kidney. No significant calcifica tion. No hydronephrosis or hydroureter. LEFT KIDNEY AND URETER: No solid masses. No significant calcification. No hydronephrosis or hydrouret er. AORTA AND VESSELS: No aneurysm. No dissection. Renal arteries, SMA, celiac without stenosis. RETROPERITONEUM: No retroperitoneal adenopathy, hemorrhage or masses. BOWEL AND PERITONEAL CAVITY: No masses or inflammatory changes. No free fluid or peritoneal masses. APPENDIX: Normal. ABDOMINAL WALL: No masses. No hernias. PELVIS: No mass or free fluid. Normal bladder. BONES: No significant or acute findings. OTHER: No other significant finding. IMPRESSION: No acute findings over the chest abdomen or pelvis TECHNICAL DOCUMENTATION: JOB ID: [id number] Quality ID # 436: Final reports with documentation of one or more dose reduction techniques (e.g., Au tomated exposure control, adjustment of the mA and/or kV according to patient size, use of iterative reconstruction technique) 2010 [employer]- All Rights Reserved Reading location - IP/workstation name: [email or web address]
[2018-06-11 14:23] VITALS: BP 117/82
== END 2018-06-11 14:23 | disposition home or self-care (01) ==
LOC: ER 10:40
DX: S16.1XXA Strain of muscle, fascia and tendon at neck level, initial encounter (principal); T14.8XXA Other injury of unspecified body region, initial encounter; R68.84 Jaw pain; M25.551 Pain in right hip; M25.512 Pain in left shoulder; M54.9 Dorsalgia, unspecified; W11.XXXA Fall on and from ladder, initial encounter; Y93.H9 Activity, other involving exterior property and land maintenance, building and construction; Y92.009 Unspecified place in unspecified non-institutional (private) residence as the place of occurrence of the external cause; G35 Multiple sclerosis; R42 Dizziness and giddiness; F17.200 Nicotine dependence, unspecified, uncomplicated; Z88.5 Allergy status to narcotic agent; Z88.8 Allergy status to other drugs, medicaments and biological substances
CPT/HCPCS: 36415; 70450; 70486; 71260; 72125; 74177; 80053; 85025; 85610; 85730; 99284

== ENCOUNTER → 2018-12-15 | Outpatient (CLI) | payer MEDICARE, MEDICAID ==
[2018-12-15 09:54] LABS: ALANINE AMINOTRANSFERASE 35 U/L (9-52); ALBUMIN 4.5 g/dL (3.5-5.0); ALKALINE PHOSPHATASE 91 U/L (38-126); ANION GAP 6 (5-19); ASPARTATE AMINO TRANSFERASE 26 U/L (14-36); BILIRUBIN,DIRECT 0.3 mg/dL (0.0-0.4); BILIRUBIN,TOTAL 0.4 mg/dL (0.2-1.3); BLOOD UREA NITROGEN 9 mg/dL (7-20); CALCIUM 9.8 mg/dL (8.4-10.2); CARBON DIOXIDE 28 mmol/L (22-30); CHLORIDE 107 mmol/L (98-107); GLUCOSE 98 mg/dL (75-110); POTASSIUM 4.6 mmol/L (3.6-5.0); SODIUM 140.9 mmol/L (137-145); TOTAL PROTEIN 6.5 g/dL (6.3-8.2); TRIGLYCERIDES 252 mg/dL (<150)
[2018-12-15 10:01] LABS: CHOLESTEROL 358.56 mg/dL (0-200); VLDL CHOLESTEROL 50.4 mg/dL (10-31)
[2018-12-15 10:05] LABS: DIRECT LDL 224 mg/dL (<100)
== END ==
LOC: OD 08:33
PROVIDERS: ATTEND Family Medicine
DX: E78.5 Hyperlipidemia, unspecified (principal); N30.00 Acute cystitis without hematuria; Z13.1 Encounter for screening for diabetes mellitus; Z13.220 Encounter for screening for lipoid disorders
CPT/HCPCS: 36415; 80053; 80061

== ENCOUNTER → 2018-12-22 | Outpatient (CLI) | payer MEDICARE, MEDICAID ==
--- NOTE | 2018-12-22 12:44 | WOMENS IMAGING REPORT ---
EXAM DESCRIPTION: BILAT DIAGNOSTIC MAMMO W/CAD; U/S BREAST UNILAT LIMITED COMPLETED DATE/TIME: 12/22/2018 9:47 am; 12/22/2018 10:27 am REASON FOR STUDY: BREAST PAIN N64.4; LT BREAST PAIN,N64.4; RT BREAST PAIN N64.4 N64.4 MASTODYNIA COMPARISON: Multiple since 2009 TECHNIQUE: Standard craniocaudal and mediolateral oblique views of each breast recorded using digita l acquisition. Bilateral 90 mediolateral views were obtained. Left breast exaggerated craniocaudad view. Bilatera l breast ultrasound was performed for bilateral breast pain. LIMITATIONS: None. FINDINGS: RIGHT BREAST MASSES: No suspicious masses. CALCIFICATIONS: No new or suspicious calcifications. ARCHITECTURAL DISTORTION: None. DEVELOPING DENSITY: None. ASYMMETRY: None noted. OTHER: No other significant findings. LEFT BREAST MASSES: No suspicious masses. CALCIFICATIONS: No new or suspicious calcifications. Stable benign calcifications left mid breast un changed from 2010 ARCHITECTURAL DISTORTION: None. DEVELOPING DENSITY: None. ASYMMETRY: None noted. OTHER: No other significant finding. Read with the assistance of CAD: .[facility] - R2 Cenova Version 1.3 .[facility] - R2 Cenova Version 2.1 .[facility] - R2 Cenova Version 2.4 .[facility] [place] R2 Cenova Version 2.4 .[facility] - R2 [employer] Gluing Version 9.2 Bilateral breast ultrasound: The lateral half of the right breast was examined with ultrasound because of a history of breast pain . No discrete solid or cystic lesions. No acoustic absorption. No worrisome focal findings. The lateral half of the left breast was examined with ultrasound because of a history of breast pain. No discrete solid or cystic lesions. No acoustic absorption. No worrisome focal findings. IMPRESSION: No mammographic/ tomosynthesis or ultrasound evidence for malignancy bilaterally. Please continue yearly bilateral screening tomosynthesis in November 2019 BREAST DENSITY: b. There are scattered areas of fibroglandular density. BIRAD: 2 Benign findings. RECOMMENDATION: RECOMMENDED FOLLOW UP: Please continue yearly bilateral screening tomosynthesis in 2019 SPECIFIC INTERVENTION/IMAGING/CONSULTATION RECOMMENDED:No additional intervention/ imaging/consultati on needed at this time. COMMUNICATION:Patient notified by letter COMMENT: The patient has been notified of the results by letter per MQSA requirements. Additional no tification policies are in place for contacting patient with suspicious or incomplete findings. Quality ID #[id number]: The [employer] recommends an annual screening mammogram for women aged 40 years or over. This facility utilizes a reminder system to ensure that all patients receive reminder letters, and/or direct phone calls for appointments. This includes reminders for routine scr eening mammograms, diagnostic mammograms, or other Breast Imaging Interventions when appropriate. Th is patient will be placed in the appropriate reminder system. The [employer] (ACR) has developed recommendations for screening MRI of the breast s in certain patient populations, to be used in conjunction with mammography. Breast MRI surveillanc e may be appropriate for women with more than 20% lifetime risk of developing breast cancer as deter mined by genetic testing, significant family history of the disease, or history of mantle radiation f or Hodgkins Disease. ACR Practice Guidelines 2008. TECHNICAL DOCUMENTATION: FINDING NUMBER: (1) ASSESSMENT: (1) JOB ID: [id number] [employer]- All Rights Reserved Reading location - IP/workstation name: [email or web address]
--- NOTE | 2018-12-22 12:44 | WOMENS IMAGING REPORT ---
EXAM DESCRIPTION: BILAT DIAGNOSTIC MAMMO W/CAD; U/S BREAST UNILAT LIMITED COMPLETED DATE/TIME: 12/22/2018 9:47 am; 12/22/2018 10:27 am REASON FOR STUDY: BREAST PAIN N64.4; LT BREAST PAIN,N64.4; RT BREAST PAIN N64.4 N64.4 MASTODYNIA COMPARISON: Multiple since 2009 TECHNIQUE: Standard craniocaudal and mediolateral oblique views of each breast recorded using digita l acquisition. Bilateral 90 mediolateral views were obtained. Left breast exaggerated craniocaudad view. Bilatera l breast ultrasound was performed for bilateral breast pain. LIMITATIONS: None. FINDINGS: RIGHT BREAST MASSES: No suspicious masses. CALCIFICATIONS: No new or suspicious calcifications. ARCHITECTURAL DISTORTION: None. DEVELOPING DENSITY: None. ASYMMETRY: None noted. OTHER: No other significant findings. LEFT BREAST MASSES: No suspicious masses. CALCIFICATIONS: No new or suspicious calcifications. Stable benign calcifications left mid breast un changed from 2010 ARCHITECTURAL DISTORTION: None. DEVELOPING DENSITY: None. ASYMMETRY: None noted. OTHER: No other significant finding. Read with the assistance of CAD: .[facility] - R2 Cenova Version 1.3 .[facility] - R2 Cenova Version 2.1 .[facility] - R2 Cenova Version 2.4 [place] [place]2 Cenova Version 2.4 .[facility] - R2 Gang Rider Version 9.2 Bilateral breast ultrasound: The lateral half of the right breast was examined with ultrasound because of a history of breast pain . No discrete solid or cystic lesions. No acoustic absorption. No worrisome focal findings. The lateral half of the left breast was examined with ultrasound because of a history of breast pain. No discrete solid or cystic lesions. No acoustic absorption. No worrisome focal findings. IMPRESSION: No mammographic/ tomosynthesis or ultrasound evidence for malignancy bilaterally. Please continue yearly bilateral screening tomosynthesis in November 2019 BREAST DENSITY: b. There are scattered areas of fibroglandular density. BIRAD: 2 Benign findings. RECOMMENDATION: RECOMMENDED FOLLOW UP: Please continue yearly bilateral screening tomosynthesis in 2019 SPECIFIC INTERVENTION/IMAGING/CONSULTATION RECOMMENDED:No additional intervention/ imaging/consultati on needed at this time. COMMUNICATION:Patient notified by letter COMMENT: The patient has been notified of the results by letter per MQSA requirements. Additional no tification policies are in place for contacting patient with suspicious or incomplete findings. Quality ID #[id number]: The [employer] recommends an annual screening mammogram for women aged 40 years or over. This facility utilizes a reminder system to ensure that all patients receive reminder letters, and/or direct phone calls for appointments. This includes reminders for routine scr eening mammograms, diagnostic mammograms, or other Breast Imaging Interventions when appropriate. Th is patient will be placed in the appropriate reminder system. The [employer] (ACR) has developed recommendations for screening MRI of the breast s in certain patient populations, to be used in conjunction with mammography. Breast MRI surveillanc e may be appropriate for women with more than 20% lifetime risk of developing breast cancer as deter mined by genetic testing, significant family history of the disease, or history of mantle radiation f or Hodgkins Disease. ACR Practice Guidelines 2008. TECHNICAL DOCUMENTATION: FINDING NUMBER: (1) ASSESSMENT: (1) JOB ID: [id number] [employer]- All Rights Reserved Reading location - IP/workstation name: [email or web address]
--- NOTE | 2018-12-22 12:44 | WOMENS IMAGING REPORT ---
EXAM DESCRIPTION: BILAT DIAGNOSTIC MAMMO W/CAD; U/S BREAST UNILAT LIMITED COMPLETED DATE/TIME: 12/22/2018 9:47 am; 12/22/2018 10:27 am REASON FOR STUDY: BREAST PAIN N64.4; LT BREAST PAIN,N64.4; RT BREAST PAIN N64.4 N64.4 MASTODYNIA COMPARISON: Multiple since 2009 TECHNIQUE: Standard craniocaudal and mediolateral oblique views of each breast recorded using digita l acquisition. Bilateral 90 mediolateral views were obtained. Left breast exaggerated craniocaudad view. Bilatera l breast ultrasound was performed for bilateral breast pain. LIMITATIONS: None. FINDINGS: RIGHT BREAST MASSES: No suspicious masses. CALCIFICATIONS: No new or suspicious calcifications. ARCHITECTURAL DISTORTION: None. DEVELOPING DENSITY: None. ASYMMETRY: None noted. OTHER: No other significant findings. LEFT BREAST MASSES: No suspicious masses. CALCIFICATIONS: No new or suspicious calcifications. Stable benign calcifications left mid breast un changed from 2010 ARCHITECTURAL DISTORTION: None. DEVELOPING DENSITY: None. ASYMMETRY: None noted. OTHER: No other significant finding. Read with the assistance of CAD: .[facility] - R2 Cenova Version 1.3 .[facility] - R2 Cenova Version 2.1 .[facility] - R2 Cenova Version 2.4 .[facility] - R2 Cenova Version 2.4 .[facility] - R2 Delivery Rn Version 9.2 Bilateral breast ultrasound: The lateral half of the right breast was examined with ultrasound because of a history of breast pain . No discrete solid or cystic lesions. No acoustic absorption. No worrisome focal findings. The lateral half of the left breast was examined with ultrasound because of a history of breast pain. No discrete solid or cystic lesions. No acoustic absorption. No worrisome focal findings. IMPRESSION: No mammographic/ tomosynthesis or ultrasound evidence for malignancy bilaterally. Please continue yearly bilateral screening tomosynthesis in November 2019 BREAST DENSITY: b. There are scattered areas of fibroglandular density. BIRAD: 2 Benign findings. RECOMMENDATION: RECOMMENDED FOLLOW UP: Please continue yearly bilateral screening tomosynthesis in 2019 SPECIFIC INTERVENTION/IMAGING/CONSULTATION RECOMMENDED:No additional intervention/ imaging/consultati on needed at this time. COMMUNICATION:Patient notified by letter COMMENT: The patient has been notified of the results by letter per MQSA requirements. Additional no tification policies are in place for contacting patient with suspicious or incomplete findings. Quality ID #[id number]: The [employer] recommends an annual screening mammogram for women aged 40 years or over. This facility utilizes a reminder system to ensure that all patients receive reminder letters, and/or direct phone calls for appointments. This includes reminders for routine scr eening mammograms, diagnostic mammograms, or other Breast Imaging Interventions when appropriate. Th is patient will be placed in the appropriate reminder system. The [employer] (ACR) has developed recommendations for screening MRI of the breast s in certain patient populations, to be used in conjunction with mammography. Breast MRI surveillanc e may be appropriate for women with more than 20% lifetime risk of developing breast cancer as deter mined by genetic testing, significant family history of the disease, or history of mantle radiation f or Hodgkins Disease. ACR Practice Guidelines 2008. TECHNICAL DOCUMENTATION: FINDING NUMBER: (1) ASSESSMENT: (1) JOB ID: [id number] [employer]- All Rights Reserved Reading location - IP/workstation name: [email or web address]
== END ==
LOC: WI 09:33
PROVIDERS: ATTEND Family Medicine
DX: N64.4 Mastodynia (principal); N64.89 Other specified disorders of breast
CPT/HCPCS: 76642; 77066

== ENCOUNTER → 2020-04-05 | Outpatient (CLI) | payer MEDICARE, MEDICAID ==
[2020-04-05 11:31] VITALS: BP 115/79
--- NOTE | 2020-04-05 11:31 | ER [facility] ASSESSMENT REPORT ---
Intake - In the Last 14 days Have you traveled outside [place]?: No Have you been in close contact with someone CONFIRMED: No Worked in Healthcare?: No - Symptoms Subjective Fever(Mcallen feverish): Yes Chills: Yes Muscule Aches: Yes Runny Nose: No Sore Throat: Yes Cough (New or worsening chronic cough): Yes Shortness of breath: Yes Nausea or Vomiting: Yes Headache: Yes Abdominal Pain: Yes Diarrhea(3 or more loose stools in last 24 hours): Yes - Do you have any of the following Chronic lung disease: Asthma or emphysema or COPD: No Cystic Fibrosis: No Diabetes: No High Blood Pressure: No Cardiovascular Disease: Yes Cardiovascular Disease Comment: HLD Chronic Kidney Disease: No Chronic Liver Disease: No Chronic blood disorder like Sickle Cell Disease: No Weak immune system due to disease or medication: Yes Immune System Comment: MS Neurologic condition that limits movement: Yes Neurological Condition Comment: seizures Developmental delay - Moderate to Severe: No Recent (within past 2 weeks) or current : No Morbid Obesity (>100 pounds over ideal weight): No - Objective Temperature: 97.7 F Pulse Rate: 74 Respiratory Rate: 18 Blood Pressure: 115/79 O2 Sat by Pulse Oximetry: 96 Objective: Given above, testing performed: If Testing Performed: Test Specimen Type Sent to General - General Information source: Patient Notes: Patient presents to the [facility] for screening for the coronavirus. Patient reports fever chills body aches and cough. Patient has had some shortness of breath nausea and headache symptoms. Patient does have a history of MS seizures and dyslipidemia. Patient does smoke a pack per day. Patient has had symptoms for the past month. - Related Data Allergies/Adverse Reactions: acetaminophen [From Vicodin] Allergy (Verified 03/15/12 19:12) Hallucinations glatiramer acetate [From Copaxone] Allergy (Verified 10/19/12 21:45) hydrocodone bitartrate [From Vicodin] Allergy (Verified 03/15/12 19:12) Hallucinations interferon beta-1b [From Betaseron] Allergy (Verified 10/19/12 21:45) Past Medical History - General Information source: Patient - Social History Smoking Status: Current Every Day Smoker Lives with: Spouse/Significant other Family History: CAD, Hyperlipidemia, Hypertension, Other - Medical History Medical History: Other - MS - Past Medical History Cardiac Medical History: Reports: Hx Atrial Fibrillation, Hx Hypercholesterolemia Pulmonary Medical History: Denies: Hx Tuberculosis Renal/ Medical History: Reports: Hx Ovarian Cysts. Denies: Hx Peritoneal Dialysis Musculoskeletal Medical History: Reports Hx Multiple Sclerosis Psychiatric Medical History: Reports: Hx Depression - anxiety Past Surgical History: Reports: Hx Cholecystectomy, Hx Tonsillectomy. Denies: Hx Pacemaker Physical Exam - Notes Notes: Full physical exam could not be performed due to covid 19 isolation protocols. Constitutional: Nontoxic appearance, no acute distress Eyes: Nonicteric, extraocular movements intact, sclera clear ENT: Posterior pharynx without erythema, exudates or tonsillar hypertrophy Cardiovascular: Heart rate and rhythm regular, no JVD Respiratory: Nonlabored breathing, no use of accessory muscles, no tachypnea Gastrointestinal: Abdomen not distended Muculoskeletal: Moves all extremities well Skin: Normal color Neuro: Awake alert oriented, normal speech Psych: Normal mood and affect Diagnostic Results Laboratory Results: The patient was evaluated during the global Covid 19 pandemic, and that diagnosis was suspected/considered upon their initial presentation. Their evaluation, treatment and testing was consistent with current guidelines for patients who present with complaints or symptoms that may be related to Covid 19. Patient presents with upper respiratory symptoms worrisome for possible Covid 19. Patient does not have emergency worrying symptoms such as difficulty breathing, shortness of breath, chest pain, pressure, confusion or cyanosis. Patient appears suitable for discharge as vital signs are stable and patient is nontoxic in appearance. Good return precautions have been discussed with patient, patient verbalized understanding and is agreeable with discharge plan of care at this time. Patient Education/Counseling Counseling/Education: Patient was provided with discharge information including: As a person under investigation for Covid 19, the [place] department of Health and Human Services, division of public health advises you to adhere to the following guidance until your test results are reported to you. If your test result is positive, you will receive additional information from your provider and your local health department at that time. Remain at home until you are cleared by the health provider or public health authorities. Keep a log of visitors to your home, notify any visitors to your home of your isolation status. If you plan to move to a new address or leave the county, notify the local health department in your County. Call your doctor or seek care if you have an urgent medical need. Before seeking medical care, call ahead to get instructions from the provider before arriving at the medical office clinic or hospital. Notify them that you are being tested for the virus that causes Covid 19 so that arrangements can be made, as necessary, to prevent transmission to others in the healthcare setting. Next, notify the local health department in your county. If a medical emergency arises and you need to call 911, inform the first responders that you are being tested for the virus that causes Covid 19. Next, notify the local health department in your county. [facility] Discharge - Discharge Clinical Impression: COVID-19 screening Condition: Stable Disposition: Home; Selfcare
[2020-04-05 13:17] LABS: A TYPE INFLUENZA AG NEGATIVE (NEGATIVE); B INFLUENZA AG NEGATIVE (NEGATIVE)
== END ==
LOC: RDC 10:53
PROVIDERS: ATTEND Nurse Practitioner Family
DX: Z20.828 Contact with and (suspected) exposure to other viral communicable diseases (principal); R50.9 Fever, unspecified; J02.9 Acute pharyngitis, unspecified; R05 Cough; R06.02 Shortness of breath; R11.0 Nausea; R51 Headache; R10.9 Unspecified abdominal pain; R19.7 Diarrhea, unspecified; G35 Multiple sclerosis; E78.5 Hyperlipidemia, unspecified; F17.200 Nicotine dependence, unspecified, uncomplicated
CPT/HCPCS: 87070; 87880; 87804; U0003; 87635; 99211

== ENCOUNTER 2020-08-25 09:15 | Emergency (ER) | payer MEDICARE, MEDICAID ==
[2020-08-25] MEDS ORDERED: ASPIRIN 325 MG TABLET PO ONE (10:24)
--- NOTE | 2020-08-25 10:56 | ER Document Report ---
ED General - General Chief Complaint: Breathing Difficulty Stated Complaint: CHEST PAIN/DIFFICULTY BREATHING/NAUSEA/SORE THROAT Time Seen by Provider: 08/25/20 10:22 Primary Care Provider: YULISSA TRACEY MD [Primary Care Provider] - Follow up as needed Notes: HPI: 60-year-old female that presents today stating around 5 days ago she started to have a sore throat, pain with swallowing, followed by nasal congestion and nonproductive cough. She states some anterior chest and back pain when she takes a deep breath. She denies any calf pain, leg swelling, recent trips or travel. She states she is recently on a prednisone taper secondary to an MS flare that occurred secondary to stress from her daughter having a premature child. She denies nausea, vomiting, or fevers. No real aggravating or relieving factors otherwise. Patient also states some mild pain to the right upper quadrant of the abdomen. Status post cholecystectomy. ROS: See HPI All other review of systems reviewed and otherwise negative Reviewed vital signs and nursing note as charted by RN. PHYSICAL EXAM: CONSTITUTIONAL: Alert and oriented and responds appropriately to questions. Well-appearing; well-nourished HEAD: Normocephalic; atraumatic EYES: Sclerae non-icteric ENT: Normal nose; no rhinorrhea; patient has small lesions to the hard palate as well as to the posterior pharyngeal region without any obvious swelling, exu date, or discharge. No obvious peritonsillar swelling with a midline nonswollen uvula NECK: Supple without meningismus; non-tender; no cervical lymphadenopathy, no masses CARD: Regular rate and rhythm; no murmurs; symmetric distal pulses RESP: Normal chest excursion without splinting or tachypnea; breath sounds clear and equal bilaterally; no wheezes, no rhonchi, no rales ABD/GI: Normal bowel sounds; non-distended; soft, non-tender to deep palpation of all 4 quadrants of the abdomen BACK: The back appears normal and is non-tender to palpation EXT: Normal ROM in all joints; non-tender to palpation; no edema SKIN: No acute lesions noted NEURO: CN 2-12 intact; 5/5 bilateral upper and lower extremity strength with sensation intact to light touch PSYCH: The patient's mood and manner are appropriate. Grooming and personal hygiene are appropriate. TRAVEL OUTSIDE OF THE [place] IN LAST 30 DAYS: No - Related Data Allergies/Adverse Reactions: acetaminophen [From Vicodin] Allergy (Verified 03/15/12 19:12) Hallucinations glatiramer acetate [From Copaxone] Allergy (Verified 10/19/12 21:45) hydrocodone bitartrate [From Vicodin] Allergy (Verified 03/15/12 19:12) Hallucinations interferon beta-1b [From Betaseron] Allergy (Verified 10/19/12 21:45) Past Medical History - Social History Smoking Status: Unknown if Ever Smoked Family History: CAD, Hyperlipidemia, Hypertension, Other - Past Medical History Cardiac Medical History: Reports: Hx Atrial Fibrillation, Hx Hypercholesterolem ia Pulmonary Medical History: Denies: Hx Tuberculosis Renal/ Medical History: Reports: Hx Ovarian Cysts. Denies: Hx Peritoneal Dialysis Musculoskeletal Medical History: Reports Hx Multiple Sclerosis Psychiatric Medical History: Reports: Hx Depression - anxiety Past Surgical History: Reports: Hx Cholecystectomy, Hx Tonsillectomy. Denies: Hx Pacemaker - Immunizations Hx Diphtheria, Pertussis, Tetanus Vaccination: No Physical Exam - Vital signs Vitals: Temp Pulse Resp BP Pulse Ox 98.4 F 80 18 135/101 H 97 08/25/20 09:31 08/25/20 09:31 08/25/20 09:31 08/25/20 09:31 08/25/20 09:31 Course - Re-evaluation Re-evalutation: 08/25/20 10:56 Given the history and physical examination with vital signs as recorded, with some pleuritic pain, nasal congestion, small ulcers to the top of the hard palate into the posterior pharyngeal region, I do believe this is most likely v iral in etiology. I will obtain a cardiac panel to evaluate for atypical ACS as well as a pneumonia. We will also order COVID test given the patient's immunocompromised status. EKG shows a heart rate of 71, normal sinus rhythm, normal axis, no ST elevation or depression. 08/25/20 12:04 X-ray of the chest as recorded. Labs are still pending. 08/25/20 14:33 Labs and imaging as recorded. Hemoglobin and troponin as recorded. D-dimer is recorded. Coronavirus testing is pending. Vital signs are stable. I do not see currently any reason for admission. Patient understands the importance of strict return precautions and isolation until results have returned. - Vital Signs Vital signs: Temp Pulse Resp BP Pulse Ox 98.4 F 80 18 135/101 H 97 08/25/20 09:31 08/25/20 09:31 08/25/20 09:31 08/25/20 09:31 08/25/20 09:31 - Laboratory Result Diagrams: 08/25/20 11:25 08/25/20 12:45 Laboratory results interpreted by me: 08/25/20 08/25/20 11:25 12:45 RDW 15.1 H Anion Gap 4 L ALT 60 H Total Protein 5.9 L Discharge - Discharge Clinical Impression: Cough, Nasal congestion Condition: Good Disposition: HOME, SELF-CARE Instructions: COVID-19 Guidance for Persons Under Investigation Additional Instructions: Come back immediately for any worsening cough, shortness of breath, fevers, chest pain, leg swelling, or any other acute problems. Please make sure that yo u follow-up with the primary care physician and specialist as we have discussed. Please make sure that you attempt to isolate as good as possible until results have returned. Referrals: YULISSA TRACEY MD [Primary Care Provider] - Follow up as needed
--- NOTE | 2020-08-25 11:08 | RADIOLOGY REPORT (SQ) ---
EXAM DESCRIPTION: CHEST SINGLE VIEW IMAGES COMPLETED DATE/TIME: 08/25/2020 10:58 am REASON FOR STUDY: CP; SOB COMPARISON: 03/17/2014. EXAM PARAMETERS: NUMBER OF VIEWS: One view. TECHNIQUE: Single frontal radiographic view of the chest acquired. RADIATION DOSE: NA LIMITATIONS: None. FINDINGS: LUNGS AND PLEURA: No opacities, masses or pneumothorax. No pleural effusion. MEDIASTINUM AND HILAR STRUCTURES: No masses. Contour normal. HEART AND VASCULAR STRUCTURES: Heart normal in size. Normal vasculature. BONES: No acute findings. HARDWARE: None in the chest. OTHER: No other significant finding. IMPRESSION: NO ACUTE RADIOGRAPHIC FINDING IN THE CHEST. TECHNICAL DOCUMENTATION: JOB ID: [id number] 2010 [employer]- All Rights Reserved Reading location - IP/workstation name: [email or web address]
[2020-08-25 12:11] LABS: ABSOLUTE BASOPHILS # (AUTO) 0.1 10^3/uL (0.0-0.2); ABSOLUTE EOSINOPHILS # (AUTO) 0.2 10^3/uL (0.0-0.6); ABSOLUTE LYMPHOCYTES (AUTO) 1.4 10^3/uL (0.5-4.7); ABSOLUTE MONOCYTES (AUTO) 0.7 10^3/uL (0.1-1.4); ABSOLUTE NEUT (AUTO) 6.2 10^3/uL (1.7-8.2); BASOPHILS % (AUTO) 1.4 % (0-2); EOSINOPHILS % (AUTO) 2.7 % (0-6); HEMATOCRIT 39.8 % (36.0-47.0); LYMPHOCYTES % (AUTO) 16.6 % (13-45); MEAN CORPUSCULAR HEMOGLOBIN 32.9 pg (27.0-33.4); MEAN CORPUSCULAR HGB CONC 35.1 g/dL (32.0-36.0); MEAN CORPUSCULAR VOLUME 94 fl (80-97); MONOCYTES % (AUTO) 7.9 % (3-13); PLATELET COUNT 206 10^3/uL (150-450); RED BLOOD COUNT 4.25 10^6/uL (3.72-5.28); RED CELL DISTRIBUTION WIDTH 15.1 % (11.5-14.0); SEGMENTED NEUTROPHILS % (AUTO) 71.4 % (42-78); TOTAL CELLS COUNTED % (AUTO) 100 %; WHITE BLOOD COUNT 8.6 10^3/uL (4.0-10.5)
--- NOTE | 2020-08-25 12:16 | EKG REPORT ---
SEVERITY:- NORMAL ECG - SINUS RHYTHM : Confirmed by: Mahendra Dela Cruz MD 25-Aug-2020 12:15:53
[2020-08-25 13:16] LABS: ALBUMIN 3.8 g/dL (3.5-5.0); ALKALINE PHOSPHATASE 80 U/L (38-126); ANION GAP 4 (5-19); ASPARTATE AMINO TRANSFERASE 33 U/L (14-36); BILIRUBIN,DIRECT 0.3 mg/dL (0.0-0.4); BILIRUBIN,TOTAL 0.5 mg/dL (0.2-1.3); BLOOD UREA NITROGEN 9 mg/dL (7-20); CALCIUM 9.2 mg/dL (8.4-10.2); CARBON DIOXIDE 29 mmol/L (22-30); CHLORIDE 106 mmol/L (98-107); GLUCOSE 85 mg/dL (75-110); POTASSIUM 4.1 mmol/L (3.6-5.0); TOTAL PROTEIN 5.9 g/dL (6.3-8.2)
[2020-08-25 16:00] VITALS: BP 151/94
== END 2020-08-25 16:01 | disposition home or self-care (01) ==
LOC: ER 09:15
DX: J02.9 Acute pharyngitis, unspecified (principal); R09.81 Nasal congestion; R06.00 Dyspnea, unspecified; K12.1 Other forms of stomatitis; R05 Cough; R11.0 Nausea; Z20.828 Contact with and (suspected) exposure to other viral communicable diseases; D84.89 Other immunodeficiencies
CPT/HCPCS: 93005; 99285; 36415; 83690; 85025; 80076; 80048; 84484; 85379; 71045; 93010; U0003; A9270; C9803; 87635